=== PATIENT | female | born 1975 | race Caucasian/White ===

== ENCOUNTER 2022-03-06 13:51 | Inpatient (IN) | payer BC ==
[~2022-03-06] VITALS: Ht 157.5 cm; Wt 78.5 kg
[2022-03-06 14:04] VITALS: BP_SYST 122
--- NOTE | 2022-03-06 14:37 | NUR ---
Placed in room 3 . Placed on panel monitor, blood pressure machine and pulse oximeter. To gown for exam. Side rails up. Report given to pravin.
[2022-03-06 17:01] LABS: BASOPHILS # (AUTO) 0.1 K/uL (0.0-0.2); BASOPHILS % (AUTO) 0.8 % (0.0-2.0); EOSINOPHILS % (AUTO) 0.1 % (0.0-4.0); HEMATOCRIT 38.2 % (36-48); HEMOGLOBIN 12.8 g/dL (12.0-16.0); LYMPHOCYTES # (AUTO) 1.3 K/uL (1.0-5.5); LYMPHOCYTES % (AUTO) 11.6 % (20.5-51.5); MEAN CORPUSCULAR HEMOGLOBIN 31 pg (27-31); MEAN CORPUSCULAR HGB CONC 33 % (32-36); MEAN CORPUSCULAR VOLUME 94 fL (79.0-98.0); MONOCYTES # (AUTO) 0.6 K/uL (0.0-1.0); MONOCYTES % (AUTO) 5.1 % (1.7-9.3); NEUTROPHILS # (AUTO) 9.3 K/uL (1.8-7.7); NEUTROPHILS % (AUTO) 82.4 % (40.0-70.0); PLATELET COUNT (AUTO) 241 K/uL (130-430); RED BLOOD CELL COUNT(AUTO) 4.09 MIL/uL (4.2-6.2); RED CELL DISTRIBUTION WIDTH 13.8 % (9.0-15.0); WHITE BLOOD COUNT (AUTO) 11.3 K/uL (4.8-10.8)
[2022-03-06 17:05] LABS: ANION GAP 6 (5-15); CALCIUM 8.5 mg/dL (8.4-11.0); CHLORIDE 103 mmol/L (98-107); CREATININE 0.81 mg/dL (0.55-1.30); GLUCOSE 100 mg/dL (70-99); POTASSIUM 4.2 mmol/L (3.5-5.1); SODIUM SERUM 137 mmol/L (136-145); UREA NITROGEN, BLOOD 9 mg/dL (8-21)
[2022-03-06 17:08] LABS: GFR AFRICAN AMERICAN 97 mL/min (>90)
[2022-03-06 17:20] LABS: ALANINE AMINOTRANSFERASE 18 U/L (12-78); ALBUMIN 3.4 g/dL (3.4-4.8); ASPARTATE AMINOTRANSFERASE 17 U/L (10-37); THYROID STIMULATING HORMONE 2.01 uIu/mL (0.36-3.74); TOTAL BILIRUBIN 0.3 mg/dL (0.0-1.0)
[2022-03-06] MEDS ORDERED: METOPROLOL TARTRATE 5 MG/5 ML AMPUL IVP ONE (17:30)
[2022-03-06] MEDS ORDERED: METOPROLOL SUCCINATE 50 MG TAB.SR.24H (TOPROL XL) PO ONE (17:30)
[2022-03-06] MEDS ORDERED: METOPROLOL TARTRATE 25 MG TABLET PO ONE (19:45)
[2022-03-06] MEDS ORDERED: *HEPARIN PER PHARMACY XX ONE (19:45)
--- NOTE | 2022-03-06 19:50 | NUR ---
Ended Cardizem drip at 1949. Heart rate 76. bp 127/76
--- NOTE | 2022-03-06 19:55 | NUR ---
Admit bed requested Patient will be admitted to care of Dr. HUERTA. Admitted to TELEMETRY unit. Diagnosis ATRIAL FIBRILLATION Inpatient (Yes or No) Observation (Yes or No) NO Orientation concerns or request close to nursing station (Yes or No) NO Covid Status - On vent or bipap NO Isolation requirements NO Needs a sitter NO From Home (Yes or if No enter name of facility) Y Requires Dialysis (Yes or No) N Med Rec Completed (Yes of No) Y
--- NOTE | 2022-03-06 20:30 | NUR ---
PROVIDE PT WITH WATER
[2022-03-06] MEDS ORDERED: PANTOPRAZOLE SODIUM 40 MG TAB PO ONE (21:00)
[2022-03-06] MEDS ORDERED: ENOXAPARIN SODIUM 80 MG/0.8 ML SYRINGE SUBCUT ONE (21:00)
[2022-03-06] MEDS ORDERED: ASPIRIN 81 MG TABLET(ECOTRIN) PO ONE (21:00)
--- NOTE | 2022-03-06 21:00 | NUR ---
PT PRESENTS WITH C/O OF CHESP PAIN (TIGHTING) AND SOB, HX OF AFIB. PT STATES SHE HAD HER 1ST EPISODE ABOUT 3 YEARS AGO. A/O X4 WITH STEADY GAIT
[2022-03-06] MEDS ORDERED: HEPARIN SODIUM,PORCINE 2000 UNITS/0.4 ML BOLUS IVP PRN (21:30)
[2022-03-06] MEDS ORDERED: HEPARIN 25,000 UNITS in 250 ML PREMIX IV PRN (21:30)
[2022-03-06] MEDS ORDERED: HEPARIN SODIUM,PORCINE 3000 UNITS/0.6 ML BOLUS IVP PRN (21:30)
[2022-03-06 23:29] VITALS: BP_SYST 114
--- NOTE | 2022-03-06 23:30 | NUR ---
Received Patient from ED, Endorsed by ER nurse STEFANIE Villatoro. A 46 years old female patient admitted to telemetry due to diagnosis of Atrial Fibrillation. Chief Complain was Chest pain and Shortness of breath. No other medical history except for Afib year 2018. No know allergy. Full Code status. Vegan diet by patient's choice. Ambulatory, Alert and Oriented x4, Covid negative. Oriented with the room, call light system, given food and drinks, all needs given. Continue to observe patient
--- NOTE | 2022-03-06 23:45 | NUR ---
CONSULTATION PAGED/CALLED Reason for Consultation: AFIB WITH ELEVATED TROPONIN Person Who was Notified: DR. LONGO Consulting Physician: DR. LONGO Cooperative Education Coordinator Specialty: CHIEF DISPATCHER Ordering Physician: DR. HUERTA
[2022-03-07 00:03] VITALS: BP_SYST 114
[2022-03-07 04:00] VITALS: BP_SYST 104
[2022-03-07 07:27] LABS: BASOPHILS # (AUTO) 0.1 K/uL (0.0-0.2); BASOPHILS % (AUTO) 1.2 % (0.0-2.0); EOSINOPHILS # (AUTO) 0.1 K/uL (0.0-0.4); EOSINOPHILS % (AUTO) 1.5 % (0.0-4.0); HEMATOCRIT 35.1 % (36-48); HEMOGLOBIN 12.4 g/dL (12.0-16.0); LYMPHOCYTES # (AUTO) 2.6 K/uL (1.0-5.5); LYMPHOCYTES % (AUTO) 32.2 % (20.5-51.5); MEAN CORPUSCULAR HEMOGLOBIN 33 pg (27-31); MEAN CORPUSCULAR HGB CONC 35 % (32-36); MEAN CORPUSCULAR VOLUME 92 fL (79.0-98.0); MONOCYTES # (AUTO) 0.7 K/uL (0.0-1.0); MONOCYTES % (AUTO) 8.5 % (1.7-9.3); NEUTROPHILS # (AUTO) 4.6 K/uL (1.8-7.7); NEUTROPHILS % (AUTO) 56.6 % (40.0-70.0); PLATELET COUNT (AUTO) 235 K/uL (130-430); RED CELL DISTRIBUTION WIDTH 13.5 % (9.0-15.0); WHITE BLOOD COUNT (AUTO) 8.1 K/uL (4.8-10.8)
[2022-03-07 07:34] LABS: CALCIUM 8.2 mg/dL (8.4-11.0); CREATININE 0.64 mg/dL (0.55-1.30)
[2022-03-07 07:42] LABS: ALBUMIN 3.2 g/dL (3.4-4.8); TOTAL BILIRUBIN 0.3 mg/dL (0.0-1.0)
[2022-03-07 08:00] VITALS: BP_SYST 120; BP_SYST 92
--- NOTE | 2022-03-07 08:00 | NUR ---
INITIAL NOTES ALERT, EATING BREAKFAST. DENIES ANY PAIN OR SHORTNESS OF BREATH. UPDATE PLAN OF CARE, TEST AND CONSULTS. SAFETY PRECAUTION OBSERVED. CALL LIGHT WITHIN REACH. ENC TO CALL FOR HELP NEEDED.
[2022-03-07] MEDS ORDERED: METOPROLOL SUCCINATE 25 MG TAB.SR.24H (TOPROL XL) PO SCH (09:00)
[2022-03-07] MEDS ORDERED: PANTOPRAZOLE SODIUM 40 MG TAB PO SCH (09:00)
[2022-03-07] MEDS ORDERED: ASPIRIN 81 MG TABLET(ECOTRIN) PO SCH (09:00)
--- NOTE | 2022-03-07 09:30 | NUR ---
MD ROUNDS Seen by Dr. Delarosa, aware of labs. Per MD no need for heparin drip.
[2022-03-07 10:44] LABS: BARBITURATE, URINE NEGATIVE (NEG <=200); BENZODIAZEPINE, URINE NEGATIVE (NEG <=150); CANNABINOID, URINE NEGATIVE (NEG <=50); COCAINE, URINE NEGATIVE (NEG <=150); METHAMPHETAMINES SCREEN,URINE NEGATIVE (NEG <=500); OPIATE, URINE NEGATIVE (NEG <=100); PHENCYCLIDINE SCREEN,URINE NEGATIVE (NEG <=25); UR TRICYCLIC ANTIDEPRESSANTS NEGATIVE (NEG <=300); URINE AMPHETAMINE NEGATIVE (NEG <=500); URINE METHADONE NEGATIVE (NEG <=200); URINE OXYCODONE SCREEN NEGATIVE (NEG <=100); URINE PROPOXYPHENE SCREEN NEGATIVE (NEG <=300)
[2022-03-07 12:03] VITALS: BP_SYST 96
--- NOTE | 2022-03-07 13:47 | NUR ---
Notes Resting, Denies ay chest pain or shortness of breath.
[2022-03-07 16:00] VITALS: BP_SYST 106
[2022-03-07 17:38] VITALS: BP_SYST 106
[2022-03-07] MEDS ORDERED: METO-540 PO (17:49)
[2022-03-07] MEDS ORDERED: Aspirin Ec PO (17:49)
--- NOTE | 2022-03-07 18:22 | NUR ---
discharge home, accompanied by . d/c instruction, medications and follow up care discussed with patient. verbalize understanding. denies any chest pain or shortness of breath. no distress. ambulates. IVL and arm band removed.
== END 2022-03-07 23:27 | disposition home or self-care (01) | DRG 281 ==
LOC: SED 13:51 → STU 19:48
PROVIDERS: ADMIT Internal Medicine; ATTEND Internal Medicine
DX: I21.4 Non-ST elevation (NSTEMI) myocardial infarction (principal); E44.1 Mild protein-calorie malnutrition; I48.0 Paroxysmal atrial fibrillation; Z20.822 Contact with and (suspected) exposure to COVID-19; E66.9 Obesity, unspecified; Z79.01 Long term (current) use of anticoagulants; Z68.31 Body mass index [BMI] 31.0-31.9, adult
CPT/HCPCS: 36415; 71045; 80053; 80061; 80307; 83735; 84443; 84484; 84703; 85025; 85610-TC; 85730-TC; 93005; 93306; 96372; 96374; 99291; G0378; J1650; J3490